=== PATIENT | male | born 1940 | race Caucasian/White ===

== ENCOUNTER 2020-04-21 11:48 | Day surgery (SDC) | payer MEDICARE ==
[~2020-04-21 11:48] MED LIST: Lidocaine 1% PF 5 ML VIAL ONE; Ondansetron PF 4 MG/2 ML Vial ONE; PHENYLEPHRINE-NS 100 MCG/ML 10 ML SYRINGE ONE; PROPOFOL 200 MG/20 ML VIAL ONE; Rocuronium Bromide 10 MG/ML (10ML VIAL) ONE
[2020-04-21] MEDS ORDERED: Fentanyl 100 MCG/2 ML VIAL ONE (13:18)
[2020-04-21] MEDS ORDERED: Lidocaine 2% Jelly 5 ML TUBE ONE (14:06)
[2020-04-21] MEDS ORDERED: Bupivacaine PF 0.5% 30 ML VIAL ONE (14:37)
[2020-04-21] MEDS ORDERED: Mineral Oil Sterile 10ML 10 ML UDCUP ONE (14:37)
[2020-04-21] MEDS ORDERED: Neomycin-Polymyxin 1 ML AMP ONE (14:37)
[2020-04-21] MEDS ORDERED: Bupivacaine 0.25% HCL 30 ML VIAL ONE (14:37)
[2020-04-21] MEDS ORDERED: EPINEPHrine 1 MG/ML AMP ONE (14:37)
[2020-04-21] MEDS ORDERED: Lidocaine 1% w/Epinephrine 1:100K 20 ML VIAL ONE (14:38)
[2020-04-21] MEDS ORDERED: Methylene Blue 50 MG/10 ML AMPUL ONE (14:46)
[2020-04-21] MEDS ORDERED: SUGAMMADEX SODIUM 200 MG/2 ML VIAL ONE (16:40)
== END 2020-04-21 17:58 | disposition home or self-care (01) ==
LOC: SDC 11:48
PROVIDERS: ATTEND Surgery Plastic and Reconstructive Surgery
PROC: 07B50ZX Excision of Right Axillary Lymphatic, Open Approach, Diagnostic (ICD-10-PCS; principal; 2020-04-21)
PROC: 0HBBXZZ Excision of Right Upper Arm Skin, External Approach (ICD-10-PCS; 2020-04-21)
DX: C43.61 Malignant melanoma of right upper limb, including shoulder (principal); C44.519 Basal cell carcinoma of skin of other part of trunk; I10 Essential (primary) hypertension
CPT/HCPCS: 11606; 13101; 38525; 38900; 78195; 88305; 88307; 88331; 88332; 88342; A9541; Q9968; J0171; J0690; J2405; J2704; J3010; S0020